=== PATIENT | female | born 1995 | race Two or more races ===

== ENCOUNTER 2019-03-18 02:00 | Emergency (ER) | payer SELFPAY ==
[~2019-03-18] VITALS: Ht 177.8 cm; Wt 124.7 kg
--- NOTE | 2019-03-18 02:23 | NUR ---
PT CAME INTO THE ED C/O L SIDED PRESSURE LIKE CHEST PAIN AND TIGHTNESS STARTED @0111 RADIATING TO L ARM. -SOB. +DIZZINESS - DIAPHHORESIS. PT AAOX4, RR EVEN AND UNLABORED ON RA W/ NAD NOTED. PT CONNECTED TO THE PACKAGE DYER AND POX
[2019-03-18] MEDS ORDERED: KETOROLAC TROMETHAMINE 15 MG/ML VIAL ONE (02:39)
--- NOTE | 2019-03-18 02:47 | NUR ---
PT REFUSED TORADOL. AGREED TO HAVE IV FLUIDS
[2019-03-18 02:50] LABS: BASOPHILS # (AUTO) 0.1 /CMM (0.0-0.2); BASOPHILS % (AUTO) 0.9 % (0.0-2.0); EOSINOPHILS % (AUTO) 1.4 % (0.0-6.0); HEMATOCRIT 38 % (33-45); HEMOGLOBIN 12.4 g/dL (11.5-14.8); LYMPHOCYTES # (AUTO) 2.3 /CMM (0.8-4.8); LYMPHOCYTES % (AUTO) 26.1 % (20.0-44.0); MEAN CORPUSCULAR HGB CONC 33 g/dl (31.0-36.0); MEAN CORPUSCULAR VOLUME 89 fL (82-100); MONOCYTES # (AUTO) 0.7 /CMM (0.1-1.30); MONOCYTES % (AUTO) 7.8 % (2.0-12.0); NEUTROPHILS # (AUTO) 5.7 /CMM (1.8-8.9); NEUTROPHILS % (AUTO) 63.8 % (43.0-81.0); PLATELET COUNT (AUTO) 370 /CMM (150-450); RED BLOOD CELL COUNT(AUTO) 4.21 MIL/uL (4.0-5.2); WHITE BLOOD COUNT (AUTO) 8.9 K/uL (4.3-11.0)
[2019-03-18] MEDS ORDERED: KETOROLAC TROMETHAMINE INJ 30 MG/ML VIAL IV ONE (03:00)
[2019-03-18] MEDS ORDERED: IV NS 0.9% 1,000 ML BAG IV ONE (03:00)
[2019-03-18 03:09] LABS: CALCIUM, SERUM 8.8 mg/dL (8.5-10.1); CARBON DIOXIDE 27 mmol/L (21-32); CHLORIDE 103 mmol/L (98-107); GLUCOSE 90 mg/dL (74-106); POTASSIUM 3.9 mmol/L (3.5-5.1); SODIUM SERUM 137 mmol/L (136-145); UREA NITROGEN, BLOOD 12 mg/dL (7-18)
--- NOTE | 2019-03-18 05:01 | NUR ---
Patient discharged to home in stable condition. Written and verbal after care instructions given. Patient verbalizes understanding of instruction.IV removed. Catheter intact and site benign. Pressure and 4x4 applied to site. No bleeding noted.
[2019-03-18 05:02] VITALS: BP 121/87
== END 2019-03-18 05:10 | disposition home or self-care (01) ==
LOC: ER 02:02
DX: R07.89 Other chest pain (principal); F41.9 Anxiety disorder, unspecified; F10.10 Alcohol abuse, uncomplicated; Y90.9 Presence of alcohol in blood, level not specified
CPT/HCPCS: 36415; 71045; 80048; 84484; 85025; 93005; 99284; J7030; J1885